=== PATIENT | male | born 1990 | race Caucasian/White ===

== ENCOUNTER 2017-10-01 14:34 | Emergency (ER) | payer OTHER ==
[2017-10-01] MEDS ORDERED: DIPH,PERTUS(ACELL)TETVAC-LF 0.5 ML VIAL IM ONE (14:41)
[2017-10-01 14:48] VITALS: RESP 16
--- NOTE | 2017-10-01 15:05 | XR ---
EXAMINATION TYPE: XR hand complete RT DATE OF EXAM: 10/01/2017 CLINICAL HISTORY: Laceration of the third digit with right hand pain TECHNIQUE: Frontal, lateral and oblique images of the right hand are obtained. COMPARISON: None. FINDINGS: There is no acute fracture/dislocation evident in the right hand. The joint spaces in the right hand appear within normal limits. No radiopaque foreign body. Minimal soft tissue swelling is s een of the third digit distally. IMPRESSION: Minimal soft tissue swelling of the third digit distally with no radiopaque foreign body, fracture, or dislocation of the right hand.
--- NOTE | 2017-10-01 15:19 | ED ---
Wound/Laceration HPI - General Chief Complaint: Wound/Laceration Stated Complaint: Finger Laceration Time Seen by Provider: 10/01/17 14:41 Source: patient, RN notes reviewed Mode of arrival: ambulatory Limitations: no limitations - History of Present Illness Initial Comments: This is a 27-year-old male presents emergency Department chief complaint of injury and his middle right finger. Patient reports that he was placing drywall and has a wooden splinter that was lodged in the finger. He reports that the splinter measures approximately 2 cm. Patient states that when he bends his middle finger he can feel it over his first distal interphalangeus joint. His tetanus is not up to date. - Related Data Previous Rx's Medication Instructions Recorded Hydrocodone/Acetaminophen [[place] 1 tab PO Q6HR PRN #20 tab 04/23/16 5-325] Cephalexin [Keflex] 500 mg PO Q8HR #30 cap 10/01/17 Sulfamethox-Tmp 800-160Mg [Bactrim 2 tab PO Q12HR #28 tab 10/01/17 DS 800-160 mg] Allergies Allergy/AdvReac Type Severity Reaction Status Date / Time No Known Allergies Allergy Verified 10/01/17 14:47 Review of Systems ROS Statement: Those systems with pertinent positive or pertinent negative responses have been documented in the HPI. ROS Other: All systems not noted in ROS Statement are negative. Past Medical History Past Medical History: No Reported History History of Any Multi-Drug Resistant Organisms: None Reported Past Surgical History: No Surgical Hx Reported Past Psychological History: No Psychological Hx Reported Smoking Status: Never smoker Past Alcohol Use History: None Reported Past Drug Use History: None Reported General Exam - General Exam Comments Initial Comments: This is a 27 year old male no distress. Limitations: no limitations General appearance: alert, in no apparent distress Head exam: Present: atraumatic, normocephalic, normal inspection Eye exam: Present: normal appearance, PERRL, EOMI. Absent: scleral icterus, conjunctival injection, periorbital swelling ENT exam: Present: normal exam, mucous membranes moist Neck exam: Present: normal inspection. Absent: tenderness, meningismus, lymphadenopathy Cardiovascular Exam: Present: regular rate, normal rhythm, normal heart sounds. Absent: systolic murmur, diastolic murmur, rubs, gallop, clicks GI/Abdominal exam: Present: soft, normal bowel sounds. Absent: distended, tenderness, guarding, rebound, rigid Right Shoulder Exam: Present: normal inspection, full ROM Upper Arm exam: Present: normal inspection, full ROM Elbow exam: Present: normal inspection, full ROM Forearm Wrist exam: Present: normal inspection, full ROM Hand Wrist exam: Present: tenderness, abrasion. Absent: normal inspection ( small enterance wound of splinter over DIP in middle finger. Able to reel the soft tissue foreign body with patient bending finger. ), full ROM (patient cannot fully bend middle finger due to foreign body over DIP), swelling Hand L/R Back: 1 - Small enterence wound from where splinter entered. Neuro motor exam: Present: wrist extension intact, thumb opposition intact Neurological exam: Present: alert, oriented X3, CN II-XII intact Psychiatric exam: Present: normal affect, normal mood Skin exam: Present: warm, dry, intact, normal color. Absent: rash Course Vital Signs 10/01/17 10/01/17 14:41 16:29 Temperature 98.6 F 98.3 F Pulse Rate 75 72 Respiratory 16 16 Rate Blood Pressure 133/75 119/83 O2 Sat by Pulse 100 96 Oximetry Procedures - Nerve Block Local Anesthetic Used: Lidocaine 1% Amount of anesthesia used: 4 Side: right Nerve Blocks: digital (middle finger) Procedure Successful: Yes Complications: none Patient Tolerated Procedure: well, no complications Additional Comments: After digital block completed, I used an 11 blade to make a small incision to be able to remove the 3cm wooden splinter. Splinter was removed with hemostats and was removed in its entirety. Patient wound was then throughly irrigated and dressing applied. Discussed not closing the wound due to possibility of infection. All questions were answered and return parameters were discussed. Medical Decision Making - Medical Decision Making This is a 27-year-old male presents emergency Department chief complaint of injury and his middle right finger. Patient reports that he was placing drywall and has a wooden splinter that was lodged in the finger. Patient had a digital block and small incision made at entry point and the splinter was remvoed, it measures close to 3cm. No evidence of tendon damage at this time. Wound was then copiously irrigated. Xray show no fractures or bony abnormalities. Patient will be started on bactrim and keflex. Discussed follow up with pCP and ortho hand specialist. Patient was then placed in tube gauze. Discussed frequent soaks. - Radiology Data Radiology results: report reviewed Minimal soft tissue swelling of 3rd digit distally and no radioopaque foreign body noted. Disposition Clinical Impression: Splinter in skin, Finger laceration Disposition: HOME SELF-CARE Condition: Good Instructions: Finger Laceration (ED) Additional Instructions: Patient is advised to do frequent soaks of the hand in warm soapy water. Patient to follow-up with system support specialist if symptoms worsen. Allow the wound to drain if it does occur to have pus. Prescriptions: Cephalexin [Keflex] 500 mg PO Q8HR #30 cap Sulfamethox-Tmp 800-160Mg [Bactrim DS 800-160 mg] 2 tab PO Q12HR #28 tab Referrals: None,Stated [REFERRING] - 1-2 days Canelo Stockton DO [Doctor of Osteopathic Medicine] - 1-2 days Time of Disposition: 16:09
[2017-10-01] MEDS ORDERED: SULFAMETH-TMP DS STARTER PACK 2 TAB BTL PO STA (16:14)
[2017-10-01] MEDS ORDERED: CEPHALEXIN 500MG STARTER PACK 4 CAP BTL PO STA (16:14)
[2017-10-01 16:30] VITALS: BP 119/83; PULSE 72; TEMP 98.3
== END 2017-10-01 16:29 | disposition home or self-care (01) ==
LOC: EC 14:34
DX: S61.222A Laceration with foreign body of right middle finger without damage to nail, initial encounter (principal); Z23 Encounter for immunization; W45.8XXA Other foreign body or object entering through skin, initial encounter
CPT/HCPCS: 10120; 90471; 90715; 99283

== ENCOUNTER 2019-08-16 17:59 | Emergency (ER) | payer OTHER ==
[2019-08-16 18:28] VITALS: BP 128/85; PULSE 80; RESP 18; TEMP 97.9
[2019-08-16 19:06] LABS: Appearance,Urine Clear (Clear); Bilirubin,Urine Negative (Negative); Blood,Urine Negative (Negative); Color,Urine Yellow; Glucose,Urine (UA) Negative (Negative); Ketones,Urine Negative (Negative); Leukocyte Esterase,Urine Moderate (Negative); Mucus,Urine Many /hpf; Nitrite,Urine Negative (Negative); Protein,Urine 1+ (Negative); RBC,Urine 2 /hpf (0-5); Specific Gravity,Urine 1.034 (1.001-1.035); WBC,Urine 40 /hpf (0-5)
--- NOTE | 2019-08-16 19:50 | US ---
EXAMINATION TYPE: US scrotum with doppler. Grayscale and color Doppler Duplex imaging performed of t he scrotum. DATE OF EXAM: 08/16/2019 COMPARISON: NONE CLINICAL HISTORY: testicular pain swelling. Left testicular pain and swelling x 1 month. EXAM MEASUREMENTS: TESTICLES: Right Testicle: 5.0 x 3.2 x 2.7 cm Left Testicle: 4.4 x 3.0 x 2.6 cm EPIDIDYMIS HEAD: Right Epididymis: 1.1 x 1.5 x 1.2 cm Left Epididymis: 1.6 x 1.6 x 1.5 cm Doppler performed to assess for testicular vascularity; bilateral color flow and waveforms are seen. Presence of hydroceles: Right measures: 1.4 x 0.5 x 1.1 cm. Left measures: 3.4 x 0.9 x 1.5 cm. Presence of varicoceles: Vessels measure up to 2.6 mm on the right side and 2.8 mm on the left side. Two anechoic areas seen left epididymal head measuring: #1: 1.1 x 1.1 x 0.8 cm #2: 0.5 x 0.7 x 0.4 cm. IMPRESSION: There are mild bilateral hydroceles. No testicular torsion or mass. Left side epididymal cysts.
[2019-08-16] MEDS ORDERED: AZITHROMYCIN 500 MG TAB PO STA (19:53)
[2019-08-16] MEDS ORDERED: cefTRIAXone 250 MG VIAL IM STA (19:53)
--- NOTE | 2019-08-16 19:58 | ED ---
Male Urogenital HPI - General Chief complaint: Urogenital Stated complaint: Male Time Seen by Provider: 08/16/19 18:29 Source: patient Mode of arrival: ambulatory Limitations: no limitations - History of Present Illness Initial comments: 28yo male presenting for multiple complaints. Patient states that 2 months ago he zipped his scrotum in his jeans, he states that since then has had flesh colored bumps in the are that can have cheese like fluid squeezed from them, they are relatively nontender per patient denies redness. Patient states more ac utely he has had left sided testicular swelling with some pain when palpated. Patient states its an aching pain and has been ongoing for the past weeks. He states he has also noted pain with BM, no rectal bleeding but his took a picture of a round lesion on his "butthole" that hurt to touch. Patient denies known history of hemmorhoids. Patient also noted that he has pain between the rectum and the base of penis that comes and goes for past few weeks. Denies fever, penile discharge, abdominal or groin pain, denies constipation. Patient denies STD or other concerns. Remaining ROS (-) upon arrival patient appears well no distress. - Related Data Previous Rx's Medication Instructions Recorded Hydrocodone/Acetaminophen [[place] 1 tab PO Q6HR PRN #20 tab 04/23/16 5-325] Cephalexin [Keflex] 500 mg PO Q8HR #30 cap 10/01/17 Sulfamethox-Tmp 800-160Mg [Bactrim 2 tab PO Q12HR #28 tab 10/01/17 DS 800-160 mg] Doxycycline [Vibramycin] 100 mg PO BID 14 Days #28 cap 08/16/19 Allergies Allergy/AdvReac Type Severity Reaction Status Date / Time No Known Allergies Allergy Verified 08/16/19 18:28 Review of Systems ROS Statement: Those systems with pertinent positive or pertinent negative responses have been documented in the HPI. ROS Other: All systems not noted in ROS Statement are negative. Past Medical History Past Medical History: No Reported History History of Any Multi-Drug Resistant Organisms: None Reported Past Surgical History: No Surgical Hx Reported Past Psychological History: No Psychological Hx Reported Smoking Status: Never smoker Past Alcohol Use History: None Reported Past Drug Use History: None Reported General Exam - General Exam Comments Initial Comments: General: The patient is awake and alert, in no distress, and does not appear acutely ill. Eye: Pupils are equal, round and reactive to light, extra-ocular movements are intact. No nystagmus. There is normal conjunctiva bilaterally. No signs of icterus. Ears, nose, mouth and throat: There are moist mucous membranes and no oral lesions. Neck: The neck is supple, there is no tenderness or JVD. Cardiovascular: There is a regular rate and rhythm. No murmur, rub or gallop is appreciated. Respiratory: Lungs are clear to auscultation, respirations are non-labored, breath sounds are equal. No wheezes, stridor, rales, or rhonchi. Gastrointestinal: Soft, non-distended, non-tender abdomen without masses or organomegaly noted. There is no rebound or guarding present. Painful soft external hemorrhoid at the 9oclock position. Pain to palpation of perineum without skin changes, no direct or indirect inguinal hernia, left testicular swelling with mild diffuse tenderness to palation. There is 2 noted cyst like lesion with central umbilicus. No noted redness of the scrotum, Vertical lie with cremesteric reflex intact. Musculoskeletal: Normal ROM, no tenderness. Strength 5/5. Sensation intact. Radial pulses equal bilaterally 2+. Neurological: A&O x 3. CN II-XII intact grossly, There are no obvious motor or sensory deficits. Coordination appears grossly intact. Speech is normal. Skin: Skin is warm and dry and no rashes or lesions are noted. Psychiatric: Cooperative, appropriate mood & affect, normal judgment. Limitations: no limitations Course Vital Signs 08/16/19 18:24 Temperature 97.9 F Pulse Rate 80 Respiratory 18 Rate Blood Pressure 128/85 O2 Sat by Pulse 98 Oximetry Medical Decision Making - Medical Decision Making Ultrasound revealed epididymal cyst with varicocele hydrocele. No masses. External scrotal examination reveals what appear to be cyst like lesions, dermoid. No abscess, redness or cellulitis. She complaining of perineal pain, with white blood cells and bacteria in the urine concerning for prostatitis. Given patient's age patient based treated for sexual transmitted disease discharged on doxycycline and anaerobic culture. STD testing pending patient was provided ceftriaxone and azithromycin in the emergency department. Rectal ex am revealed a small nonthrombosed external hemorrhoid. I discussed with attending provider Dr. Ritter who is agreeable to discharge with PCP and urology f/u. Patietn agreeable to care plan and all return parameters which included worsenign pain/symptoms, fevers. - Lab Data Lab Results 08/16/19 Range/Units 18:54 Urine Color Yellow Urine Appearance Clear (Clear) Urine pH 6.0 (5.0-8.0) Ur Specific [place] 1.034 (1.001-1.035) Urine Protein 1+ H (Negative) Urine Glucose (UA) Negative (Negative) Urine Ketones Negative (Negative) Urine Blood Negative (Negative) Urine Nitrite Negative (Negative) Urine Bilirubin Negative (Negative) Urine Urobilinogen 6.0 (<2.0) mg/dL Ur Leukocyte Esterase Moderate H (Negative) Urine RBC 2 (0-5) /hpf Urine WBC 40 H (0-5) /hpf Urine Mucus Many H (None) /hpf Disposition Clinical Impression: Epididymal cyst, Varicocele, Hydrocele, External hemorrhoid, Prostatitis Disposition: HOME SELF-CARE Condition: Good Additional Instructions: Please use medication as discussed. Please follow-up with urology in next week. Please return to emergency room if the symptoms increase or worsen or for any other concerns-fever, increasing pain. Prescriptions: Doxycycline [Vibramycin] 100 mg PO BID 14 Days #28 cap Is patient prescribed a controlled substance at d/c from ED?: No Referrals: None,Stated [Primary Care Provider] - 1-2 days Salvatore Carr MD [STAFF PHYSICIAN] - 1-2 days Time of Disposition: 19:58
[2019-08-17 16:22] LABS: C. trachomatis,PCR Positive (Neg,Equiv); Chlamydia trachomatis Source Urine; N. gonorrhoeae,PCR Negative (Neg,Equiv); Neisseria Source Urine
== END 2019-08-16 20:21 | disposition home or self-care (01) ==
LOC: EC 17:59
DX: N43.3 Hydrocele, unspecified (principal); I86.1 Scrotal varices; N50.3 Cyst of epididymis; N41.9 Inflammatory disease of prostate, unspecified; K64.4 Residual hemorrhoidal skin tags
CPT/HCPCS: 81001; 87491; 87591; 87086; 87661; 93975; 76870; 99284; 96372; J0696

== ENCOUNTER 2021-06-01 17:25 | Emergency (ER) | payer OTHER ==
[2021-06-01 17:29] VITALS: BP 117/71; PULSE 77; RESP 16; TEMP 97.9
--- NOTE | 2021-06-01 18:35 | XR ---
EXAMINATION TYPE: XR finger LT DATE OF EXAM: 06/01/2021 COMPARISON: NONE HISTORY: Thumb pain TECHNIQUE: 3 views FINDINGS: I see no fracture nor dislocation. Joint spaces are fairly normal. There are no erosions. IMPRESSION: Negative left thumb exam.
[2021-06-01] MEDS ORDERED: DIPH,PERTUS(ACELL)TETVAC-LF 0.5 ML VIAL IM ONE (19:15)
== END 2021-06-01 19:00 | disposition left against medical advice (07) ==
LOC: EC 17:25
DX: Z53.21 Procedure and treatment not carried out due to patient leaving prior to being seen by health care provider (principal)
CPT/HCPCS: 99499

== ENCOUNTER 2022-04-19 17:05 | Emergency (ER) | payer OTHER ==
[2022-04-19 17:42] VITALS: TEMP 98.3
[2022-04-19] MEDS ORDERED: FLUORESCEIN STRIPS 1 MG STRIP LEFT EYE ONE (18:24)
[2022-04-19] MEDS ORDERED: PROPARACAINE 0.5% OPHTH DROPS 15 ML BTL LEFT EYE STA (18:24)
[2022-04-19] MEDS ORDERED: ERYTHROMYCIN 5 MG/GM OPHTH OINT 3.5 GM TUBE LEFT EYE STA (18:34)
--- NOTE | 2022-04-19 19:29 | ED ---
Eye Problem HPI - General Chief complaint: Eye Problems Stated complaint: lt eye irritation Time Seen by Provider: 04/19/22 18:16 Source: patient Mode of arrival: ambulatory Limitations: no limitations - History of Present Illness Initial comments: Patient is 31-year-old male who presents with a chief complaint of left eye irritation and redness. Patient states symptoms started this afternoon. Patient feels that there might be a foreign body in his eye however does not recall anything entering his eye. He denies eye pain. Does report itchiness of the left eye. Also reports clear drainage from the eye for the past couple hours with additional yellow crusting. Denies double vision, blurry vision, and eye trauma. Denies recent upper respiratory infection and history of allergies. No contact use. - Related Data Previous Rx's Medication Instructions Recorded Hydrocodone/Acetaminophen [[place] 1 tab PO Q6HR PRN #20 tab 04/23/16 5-325] Cephalexin [Keflex] 500 mg PO Q8HR #30 cap 10/01/17 Sulfamethox-Tmp 800-160Mg [Bactrim 2 tab PO Q12HR #28 tab 10/01/17 DS 800-160 mg] Doxycycline [Vibramycin] 100 mg PO BID 14 Days #28 cap 08/16/19 Allergies Allergy/AdvReac Type Severity Reaction Status Date / Time No Known Allergies Allergy Verified 04/19/22 17:41 Review of Systems ROS Statement: Those systems with pertinent positive or pertinent negative responses have been documented in the HPI. ROS Other: All systems not noted in ROS Statement are negative. Past Medical History Past Medical History: No Reported History History of Any Multi-Drug Resistant Organisms: None Reported Past Surgical History: No Surgical Hx Reported Past Psychological History: No Psychological Hx Reported Smoking Status: Never smoker Past Alcohol Use History: None Reported Past Drug Use History: None Reported General Exam Limitations: no limitations General appearance: alert, in no apparent distress Head exam: Present: atraumatic, normocephalic, normal inspection Eye exam: Present: PERRL, EOMI, conjunctival injection (left eye. minimal yellow crusting in corner of eye). Absent: normal appearance, scleral icterus, periorbital swelling Pupils: Present: normal accommodation Respiratory exam: Present: normal lung sounds bilaterally. Absent: respiratory distress, wheezes, rales, rhonchi, stridor Cardiovascular Exam: Present: regular rate, normal rhythm, normal heart sounds. Absent: systolic murmur, diastolic murmur, rubs, gallop, clicks Neurological exam: Present: alert, oriented X3, CN II-XII intact Psychiatric exam: Present: normal affect, normal mood Skin exam: Present: warm, dry, intact, normal color. Absent: rash Course Vital Signs 04/19/22 04/19/22 17:39 20:20 Temperature 98.3 F Pulse Rate 73 66 Respiratory 20 16 Rate Blood Pressure 128/83 142/89 O2 Sat by Pulse 99 99 Oximetry Medical Decision Making - Medical Decision Making This 31-year-old male who presents with left eye irritation and redness. PERRL. there is conjunctival injection with minimal yellow crusting in the corner of the eye. The eye was stained. No foreign body, ulcer, or abrasions were appreciated. Patient likely has a viral conjunctivitis. I will prescribe him erythromycin ointment in the event that this is bacterial. First dose applied in the emergency department. Conjunctivitis education provided detail. Dr. Farias is my attending. Disposition Clinical Impression: Conjunctivitis, left eye Disposition: HOME SELF-CARE Condition: Good Instructions (If sedation given, give patient instructions): Conjunctivitis (ED) Additional Instructions: Apply ointment 4 times a day for 5 days or until symptoms are resolved. Wash hands frequently to avoid infection of other eye. Avoid touching the eyes. Do not share towels or pillows until infection is cleared. Follow-up with primary care provider. Return to the emergency department if he strains new, concerning, or worsening symptoms. Is patient prescribed a controlled substance at d/c from ED?: No Referrals: Anup Shore MD [Primary Care Provider] - 1-2 days Time of Disposition: 19:29
[2022-04-19 20:21] VITALS: BP 142/89; PULSE 66; RESP 16
== END 2022-04-19 20:21 | disposition home or self-care (01) ==
LOC: EC 17:05
DX: H10.9 Unspecified conjunctivitis (principal)
CPT/HCPCS: 99282